=== PATIENT | female | born 1940 | race Caucasian/White ===

== ENCOUNTER → 2017-04-24 | Outpatient (CLI) | payer MEDICARE ==
--- NOTE | 2017-04-25 08:40 | ECHOF ---
Referral Reason:R06.02 Shortness of Breath MEASUREMENTS -------- HEIGHT: 157.5 cm WEIGHT: 80.7 kg BP: RVIDd: 3.0 cm (< 3.3) IVSd: 1.3 cm (0.6 - 1.1) LVIDd: 4.4 cm (3.9 - 5.3) LVPWd: 1.0 cm (0.6 - 1.1) IVSs: 1.7 cm LVIDs: 3.0 cm LVPWs: 1.3 cm LAESV Index (A-L): 38.41 ml/m Ao Diam: 3.3 cm (2.0 - 3.7) AV Cusp: 1.1 cm (1.5 - 2.6) LA Diam: 4.3 cm (2.7 - 3.8) MV EXCURSION: 22.256 mm (> 18.000) MV EF SLOPE: 156 mm/s (70 - 150) EPSS: 0.3 cm MV E Carter: 0.55 m/s MV DecT: 252 ms MV A Carter: 0.69 m/s MV E/A Ratio: 0.80 AV maxP.33 mmHg AV meanP.39 mmHg RAP: 5.00 mmHg RVSP: 39.18 mmHg FINDINGS -------- Sinus rhythm. This was a technically good study. The left ventricular size is normal. There is mild concentric left ventricular hypertrophy. Overa ll left ventricular systolic function is normal with, an EF between 55 - 60 %. The right ventricle is normal in size. LA is moderately dilated 34-39 ml/m2 The right atrial size is normal. There is moderate aortic valve sclerosis. There is mild aortic stenosis present. Peak/mean gradie nt across the Aortic Valve is 20.33mmHg / 9.39mmHg. Mild mitral annular calcification present. Mild mitral regurgitation is present. Mild tricuspid regurgitation present. There is mild pulmonary hypertension. The right ventricular systolic pressure, as measured by Doppler, is 39.18mmHg. There is no pulmonic regurgitation present. The aortic root size is normal. There is no pericardial effusion. CONCLUSIONS -------- 1. The left ventricular size is normal. 2. There is mild concentric left ventricular hypertrophy. 3. Overall left ventricular systolic function is normal with, an EF between 55 - 60 %. 4. LA is moderately dilated 34-39 ml/m2 5. There is moderate aortic valve sclerosis. 6. There is mild aortic stenosis present. 7. Peak/mean gradient across the Aortic Valve is 20.33mmHg / 9.39mmHg. 8. Mild mitral annular calcification present. 9. Mild mitral regurgitation is present. 10. Mild tricuspid regurgitation present. 11. There is mild pulmonary hypertension. 12. The right ventricular systolic pressure, as measured by Doppler, is 39.18mmHg. 13. There is no pulmonic regurgitation present. 14. The aortic root size is normal. 15. There is no pericardial effusion. SPECIAL EDUCATION CURRICULUM SPECIALIST: Morenita Bailey RDCS
== END ==
LOC: RADECHMAIN 14:50
PROVIDERS: ATTEND Physician Assistant
DX: I08.1 Rheumatic disorders of both mitral and tricuspid valves (principal); I70.8 Atherosclerosis of other arteries; I27.20 Pulmonary hypertension, unspecified
CPT/HCPCS: 93306

== ENCOUNTER 2020-03-18 14:48 | Observation (INO) | payer MEDICARE ==
[2020-03-18] MEDS ORDERED: IPRATROPIUM-ALBUTEROL 3 ML NEB INHALATION STA (15:14)
--- NOTE | 2020-03-18 15:53 | ED ---
SOB HPI - General Chief Complaint: Shortness of Breath Stated Complaint: High BP Time Seen by Provider: 03/18/20 15:03 Source: patient, EMS Mode of arrival: EMS Limitations: no limitations - History of Present Illness Initial Comments: This patient is an 79-year-old woman who arrives here as a transfer from [facility], where she had gone to be seen regarding shortness of breath. The patient relates that she moved to a new residence approximately one month ago, and she noticed that she was becoming short of breath shortly after that. She felt initially that it was due to temperature changes in the house that were causing her COPD to flareup a little. The patient also relates that her son brought her a cat and she is uncertain if she has an ALLERGIC reaction to it. Patient had gone to the other facility today, where she had initial labs, chest x-ray, and she was transferred here for the purpose of having cardiology consultation. When I interview the patient, she complains of a little bit of dyspnea, but no other symptoms. She denies chest pain, diaphoresis, palpitations, nausea or vomiting. The patient reportedly had Covid 19 infection in December. MD Complaint: shortness of breath Onset/Timin -: month(s) Severity: moderate Consistency: constant Improves With: nothing Worsens With: exertion Known History Of: COPD Associated Symptoms: cough - Related Data Home Medications Medication Instructions Recorded Confirmed Diclofenac Sodium Gel [Voltaren 2 gm TOPICAL QID PRN 01/18/14 03/18/20 Gel] Levothyroxine Sodium [Synthroid] 150 mcg PO AC-BRKFST 01/18/14 03/18/20 Lovastatin [Mevacor] 20 mg PO HS 01/18/14 03/18/20 fentaNYL 50MCG/HR PATCH [Duragesic 50 mcg TRANSDERM Q72H 01/18/14 03/18/20 50MCG/HR] Albuterol Inhaler [Ventolin Hfa 2 puff INHALATION RT-QID PRN 03/18/20 03/18/20 Inhaler] Allopurinol [Zyloprim] 200 mg PO HS 03/18/20 03/18/20 Ascorbic Acid [Vitamin C] 500 mg PO HS 03/18/20 03/18/20 Aspirin EC [Ecotrin Low Dose] 81 mg PO HS 03/18/20 03/18/20 Calcitriol [Rocaltrol] 0.25 mcg PO MOTUWETHFR@2100 03/18/20 03/18/20 Cholecalciferol (Vitamin D3) 125 mcg PO DAILY 03/18/20 03/18/20 [Vitamin D3 (5000 Iu)] Fluticasone/Vilanterol [Breo 1 puff INHALATION RT-DAILY 03/18/20 03/18/20 Ellipta 100-25 Mcg Inhaler] Folic Acid 0.4 mg PO DAILY 03/18/20 03/18/20 HYDROcodone/APAP 5-325MG [[place] 1 tab PO QID 03/18/20 03/18/20 5-325] Omeprazole 20 mg PO BID 03/18/20 03/18/20 Vitamin B Complex 1 cap PO DAILY 03/18/20 03/18/20 Zinc 50 mg PO DAILY 03/18/20 03/18/20 lisinopriL [Zestril] 2.5 mg PO DAILY 03/18/20 03/18/20 Previous Rx's Medication Instructions Recorded Apixaban [Eliquis] 2.5 mg PO BID #60 tab 03/20/20 Furosemide [Lasix] 40 mg PO BID@0900,1600 #60 tab 03/20/20 carvediloL [Coreg] 6.25 mg PO BID-W/MEALS #60 tab 03/20/20 Allergies Allergy/AdvReac Type Severity Reaction Status Date / Time Penicillins Allergy Unknown Unknown Verified 03/18/20 16:49 Childhood Review of Systems ROS Statement: Those systems with pertinent positive or pertinent negative responses have been documented in the HPI. ROS Other: All systems not noted in ROS Statement are negative. Constitutional: Denies: fever, chills Respiratory: Reports: dyspnea. Denies: cough, wheezes, hemoptysis Cardiovascular: Reports: dyspnea on exertion. Denies: chest pain, palpitations, orthopnea, edema, syncope Gastrointestinal: Denies: abdominal pain, nausea, vomiting, diarrhea, melena, hematochezia Genitourinary: Denies: dysuria, hematuria Musculoskeletal: Denies: back pain Skin: Denies: rash Neurological: Denies: headache, weakness, numbness, paresthesias Past Medical History Past Medical History: Atrial Fibrillation, Heart Failure, Diabetes Mellitus, Hypertension History of Any Multi-Drug Resistant Organisms: None Reported Past Surgical History: Adenoidectomy, Bladder Surgery, Cholecystectomy, Hysterectomy, Orthopedic Surgery, Tonsillectomy Additional Past Surgical History / Comment(s): Left foot , right hip Past Psychological History: No Psychological Hx Reported Smoking Status: Former smoker Past Alcohol Use History: None Reported Past Drug Use History: None Reported General Exam Limitations: no limitations General appearance: alert, in no apparent distress Head exam: Present: atraumatic, normocephalic Eye exam: Present: normal appearance. Absent: scleral icterus, conjunctival injection Neck exam: Present: normal inspection Respiratory exam: Present: wheezes. Absent: respiratory distress, rales, rhonchi, stridor, accessory muscle use, decreased breath sounds, prolonged expiratory Cardiovascular Exam: Present: irregular rhythm, normal heart sounds. Absent: systolic murmur, diastolic murmur, rubs, gallop GI/Abdominal exam: Present: soft. Absent: distended, tenderness, guarding, rebound, rigid, mass Extremities exam: Present: normal inspection, normal capillary refill. Absent: pedal edema, calf tenderness Back exam: Present: normal inspection. Absent: CVA tenderness (R), CVA tenderness (L) Neurological exam: Present: alert Skin exam: Present: warm, dry, intact, normal color. Absent: rash Course Vital Signs 03/18/20 03/18/20 03/18/20 14:52 15:35 15:41 Temperature 97.8 F Pulse Rate 100 85 92 Respiratory 18 Rate Blood Pressure 144/108 O2 Sat by Pulse 95 Oximetry 03/18/20 03/18/20 03/18/20 16:45 16:46 17:40 Temperature Pulse Rate 103 H Respiratory 20 Rate Blood Pressure 157/124 144/108 O2 Sat by Pulse Oximetry 03/18/20 18:16 Temperature 97.8 F Pulse Rate 88 Respiratory 18 Rate Blood Pressure 133/95 O2 Sat by Pulse 98 Oximetry Medical Decision Making - Lab Data Result diagrams: 03/20/20 03:37 - EKG Data -: EKG Interpreted by Hi EKG shows normal: axis (Left axis deviation), intervals (QRS duration 150 ms, prolonged consistent with the right bundle branch block. QTC 508 ms, normal.), QRS complexes (right bundle branch block), ST-T waves (Possible lateral ischemia.) Rate: tachycardia (Rate 103 bpm) Interpretation: other (Atrial fibrillation) Disposition Clinical Impression: Chronic atrial fibrillation, COPD (chronic obstructive pulmonary disease), Dyspnea Disposition: ADMITTED IP TO THIS HOSP Condition: Stable
[2020-03-18] MEDS ORDERED: NITROGLYCERIN SL TABS 0.4 MG TAB SUBLINGUAL PRN (16:09)
[2020-03-18] MEDS ORDERED: MAG HYDROX/AL HYDROX/SIMETH 30 ML, HYOSCYAMINE ELIXIR 10 ML, LIDOCAINE VISCOUS 2% 10 ML PO STA ×3 (16:14)
[2020-03-18] MEDS ORDERED: predniSONE 20 MG TAB PO STA (16:14)
[2020-03-18] MEDS ORDERED: ENALAPRILAT 1.25 MG/ML 1 ML VIAL IVP STA (16:52)
[2020-03-18] MEDS ORDERED: ALBUTEROL NEBULIZED 2.5 MG/3 ML INHALATION PRN (19:58)
[2020-03-18] MEDS: IPRATROPIUM-ALBUTEROL 3 ML NEB INHALATION SCH (20:08)
[2020-03-18] MEDS: SODIUM CHLORIDE 0.9% 1,000 ML IV SCH (20:42)
[2020-03-18] MEDS: allopurinoL 100 MG TAB PO SCH (20:45)
[2020-03-18] MEDS: HEPARIN SODIUM,PORCINE 5,000 UNIT/ML 1 ML VIAL SQ SCH (20:45)
[2020-03-18] MEDS: ASCORBIC ACID 500 MG TAB PO SCH (20:46)
[2020-03-18] MEDS: carvediloL 3.125 MG TAB PO SCH (20:46)
[2020-03-18 20:55] LABS: Glucose,Whole Blood 195 mg/dL (75-99)
[2020-03-18] MEDS ORDERED: ASPIRIN 81 MG PO SCH (21:00)
[2020-03-19 05:32] LABS: Cholesterol 167 mg/dL (<200); HDL Cholesterol 60 mg/dL (40-60); LDL Cholesterol,Calculated 91 mg/dL (0-99); Triglycerides 79 mg/dL (<150)
[2020-03-19] MEDS: carvediloL 3.125 MG TAB PO SCH (06:58)
[2020-03-19] MEDS: LEVOTHYROXINE 75 MCG TAB PO SCH (06:58)
[2020-03-19 07:01] LABS: Glucose,Whole Blood 171 mg/dL (75-99)
[2020-03-19] MEDS ORDERED: carvediloL 3.125 MG TAB PO STA (07:49)
[2020-03-19] MEDS: predniSONE 20 MG TAB PO SCH (08:29)
[2020-03-19] MEDS: FOLIC ACID 1 MG TAB PO SCH (08:29)
[2020-03-19] MEDS: HEPARIN SODIUM,PORCINE 5,000 UNIT/ML 1 ML VIAL SQ SCH (08:29)
[2020-03-19] MEDS: ZINC SULFATE 220 MG CAP PO SCH (08:29)
[2020-03-19] MEDS: IPRATROPIUM-ALBUTEROL 3 ML NEB INHALATION SCH ×5 (08:34→19:50)
[2020-03-19] MEDS ORDERED: AZITHROMYCIN 500 MG in SODIUM CHLORIDE 0.9% 250 ML IVPB STA (08:52)
[2020-03-19] MEDS ORDERED: FUROSEMIDE 40 MG TAB PO SCH (09:00)
[2020-03-19] MEDS ORDERED: FUROSEMIDE 10 MG/ML 4 ML VIAL IV SCH ×2 (09:00→21:00)
[2020-03-19] MEDS ORDERED: ASPIRIN 325 MG TAB PO SCH (09:00)
[2020-03-19] MEDS ORDERED: APIXABAN 2.5 MG TABLET PO SCH (09:15)
[2020-03-19 09:36] LABS: Calcium 9.6 mg/dL (8.4-10.2)
--- NOTE | 2020-03-19 09:55 | P.CRDCN ---
History of Present Illness History of present illness: HISTORY OF PRESENTING ILLNESS This is a pleasant 79-year-old female past medical history significant for chronic persistent atrial fibrillation, history of DVT, history of bleeding hemorrhoid therefore not on intermediate anticoagulation, chronic kidney disease, diabetes mellitus, hypertension, dyslipidemia, COPD and former nicotine dependence. She follows in the office with Dr. Bullock however has not been to the office since 2018. We have been asked to see in consultation for atrial fibrillation and shortness of breath. She initially presented to [facility] secondary to progressively worsening shortness of breath over the previous one month. She states she has been using her nebulizer regularly however is not getting significant relief. Her shortness of breath is worse with exertion or activity. She states even simple activities such as walking to the bathroom causes her to become quite labored. She denies associated chest pain. She has no dizziness or palpitations. She was evaluated for the watchman procedure last year however the process was halted secondary to her testing positive for Covid in December. DIAGNOSTICS EKG reveals no fibrillation. Telemetry tracings indicate atrial fibrillation with variable ventricular rate. Chest xray obtained at [facility] reveals left pleural effusion and increased interstitial prominence. Laboratory reviewed, cardiac enzymes negative 3, d-dimer 1.63, sodium 136, potassium 5, creatinine 1.58, magnesium 2.1, TSH 0.86, BNP 684, hemoglobin 11.9, WBC 12.8 and platelets 253. Current cardiac medications include aspirin 81 mg daily, carvedilol 3.125 mg twice a day, lisinopril 2.5 mg daily and Lasix 40 mg daily. She underwent an echocardiogram with her primary care physician in December 2019 revealing impaired LV systolic function with ejection fraction 35-40%, moderate mitral regurgitation and mild aortic stenosis. Prior to that she had a normal echocardiogram in the office with Dr. Bullock in 2017 revealing preserved LV systolic function with ejection fraction 55-60% with mild aortic stenosis with a mean gradient of 9 mmHg. REVIEW OF SYSTEMS At the time of my exam: CONSTITUTIONAL: Denies fever or chills. CARDIOVASCULAR: Complains of exertional dyspnea. Denies chest pain, orthopnea, PND or palpitations. RESPIRATORY: Denies cough. GASTROINTESTINAL: Denies abdominal pain, diarrhea, constipation, nausea or vomiting. MUSCULOSKELETAL: Denies myalgias. NEUROLOGIC: Denies numbness, tingling, headacbe or weakness. ENDOCRINE: Denies fatigue, weight change, polydipsia or polyurina. GENITOURINARY: Denies burning, hematuria or urgency with micturation. HEMATOLOGIC: Denies history of anemia or bleeding. PHYSICAL EXAMINATION Blood pressure 141/98 heart rate 87 afebrile and maintaining oxygen saturation on nasal cannula. CONSTITUTIONAL: No apparent distress. HEENT: Head is normocephalic. Pupils are equal, round. Sclerae anicteric. Mucous membranes of the mouth are moist. No JVD. No carotid bruit. CHEST EXAMINATION: Bibasilar rales, no wheezes or rhonchi. No chest wall t enderness is noted on palpation or with deep breathing. HEART EXAMINATION: Irregular rate and rhythm. S1, S2 heard. Systolic ejection murmur at the base, no gallops or rub. ABDOMEN: Soft, nontender. Positive bowel sounds. EXTREMITIES: 2+ peripheral pulses, right lower extremity edema and erythema and no calf tenderness. NEUROLOGIC EXAMINATION: Patient is awake, alert and oriented x3. ASSESSMENT Acute on chronic systolic heart failure Elevated d-dimer with history of DVT Chronic persistent atrial fibrillation with variable ventricular rates Chronic kidney disease Diabetes mellitus Hypertension Dyslipidemia COPD Aortic stenosis Mitral regurgitation PLAN Repeat 2-D echocardiogram and Doppler study to assess cardiac structure and function. Obtain bilateral lower extremity venous Doppler and VQ scan. Initiate IV diuretics, Lasix 40 mg twice a day. Increase Coreg to 6.25 mg twice a day. Discussed with the patient the need for thromboembolic protection. She is agreeable to start Eliquis 2.5 mg twice a day. Discontinue aspirin. Follow renal function and electrolytes in the morning. Document accurate intake and output along with daily weights. Further recommendations to follow based upon clinical course. Thank you kindly for this consultation. Nurse Practitioner note has been reviewed, I agree with a documented findings and plan of care. Patient was seen and examined. Past Medical History Past Medical History: Atrial Fibrillation, Heart Failure, Diabetes Mellitus, Hypertension History of Any Multi-Drug Resistant Organisms: None Reported Past Surgical History: Adenoidectomy, Bladder Surgery, Cholecystectomy, Hysterectomy, Orthopedic Surgery, Tonsillectomy Additional Past Surgical History / Comment(s): Left foot , right hip Past Psychological History: No Psychological Hx Reported Smoking Status: Never smoker Past Alcohol Use History: None Reported Past Drug Use History: None Reported Medications and Allergies Home Medications Medication Instructions Recorded Confirmed Type Diclofenac Sodium Gel [Voltaren 2 gm TOPICAL QID PRN 01/18/14 03/18/20 History Gel] Furosemide [Lasix] 40 mg PO DAILY 01/18/14 03/18/20 History Levothyroxine Sodium [Synthroid] 150 mcg PO AC-BRKFST 01/18/14 03/18/20 History Lovastatin [Mevacor] 20 mg PO HS 01/18/14 03/18/20 History fentaNYL 50MCG/HR PATCH [Duragesic] 50 mcg TRANSDERM Q72H 01/18/14 03/18/20 History Albuterol Inhaler [Ventolin Hfa 2 puff INHALATION RT-QID PRN 03/18/20 03/18/20 History Inhaler] Allopurinol [Zyloprim] 200 mg PO HS 03/18/20 03/18/20 History Ascorbic Acid [Vitamin C] 500 mg PO HS 03/18/20 03/18/20 History Aspirin EC [Ecotrin Low Dose] 81 mg PO HS 03/18/20 03/18/20 History Calcitriol [Rocaltrol] 0.25 mcg PO MOTUWETHFR@2100 03/18/20 03/18/20 History Cholecalciferol (Vitamin D3) 125 mcg PO DAILY 03/18/20 03/18/20 History [Vitamin D3 (5000 units)] Fluticasone/Vilanterol [Breo 1 puff INHALATION RT-DAILY 03/18/20 03/18/20 History Ellipta 100-25 Mcg Inhaler] Folic Acid 0.4 mg PO DAILY 03/18/20 03/18/20 History HYDROcodone/APAP 5-325MG [[place] 1 tab PO QID 03/18/20 03/18/20 History 5-325] Omeprazole 20 mg PO BID 03/18/20 03/18/20 History Vitamin B Complex 1 cap PO DAILY 03/18/20 03/18/20 History Zinc 50 mg PO DAILY 03/18/20 03/18/20 History carvediloL [Coreg] 3.125 mg PO BID 03/18/20 03/18/20 History lisinopriL [Zestril] 2.5 mg PO DAILY 03/18/20 03/18/20 History Allergies Allergy/AdvReac Type Severity Reaction Status Date / Time Penicillins Allergy Unknown Unknown Verified 03/18/20 16:49 Childhood Physical Exam Vitals: Vital Signs Temp Pulse Pulse Resp BP BP Pulse Ox 03/19/20 08:44 74 03/19/20 02:10 97.4 F L 68 19 162/80 95 03/18/20 22:45 154/87 03/18/20 20:20 97.9 F 90 20 159/103 97 03/18/20 20:17 68 03/18/20 20:08 68 98 03/18/20 18:26 98 F 91 17 141/99 92 L 03/18/20 18:16 97.8 F 88 18 133/95 98 03/18/20 17:40 144/108 03/18/20 16:46 20 03/18/20 16:45 103 H 157/124 03/18/20 15:41 92 03/18/20 15:35 85 03/18/20 14:52 97.8 F 100 18 144/108 95 Intake and Output 03/18/20 03/19/20 03/19/20 22:59 06:59 14:59 Other: Voiding Method Toilet Toilet # Voids 2 1 1 # Bowel Movements 1 Weight 79.832 kg Results 03/19/20 07:58 Cardiac Enzymes 03/18/20 03/18/20 Range/Units 18:32 21:10 Troponin I 0.029 0.030 (0.000-0.034) ng/mL Lipids 03/18/20 Range/Units 21:10 Triglycerides 79 (<150) mg/dL Cholesterol 167 (<200) mg/dL HDL Cholesterol 60 (40-60) mg/dL Current Medications Generic Name Dose Route Start Last Admin Trade Name Freq PRN Reason Stop Dose Admin Albuterol Sulfate 2.5 mg 03/18/20 19:58 Albuterol Nebulized 2.5 Mg/3 Ml INHALATION RT-QID PRN Shortness Of Breath Albuterol/Ipratropium 3 ml 03/18/20 20:00 03/19/20 08:43 Ipratropium-Albuterol 3 Ml Neb INHALATION 3 ml RT-QID DAVID Administration Allopurinol 200 mg 03/18/20 21:00 03/18/20 20:45 Allopurinol 100 Mg Tab PO 200 mg HS DAVID Administration Ascorbic Acid 500 mg 03/18/20 21:00 03/18/20 20:46 Ascorbic Acid 500 Mg Tab PO 500 mg HS DAVID Administration Aspirin 81 mg 03/18/20 21:00 03/18/20 20:45 Aspirin 81 Mg PO 81 mg HS DAVID Administration Calcitriol 0.25 mcg 03/19/20 21:00 Calcitriol 0.25 Mcg Cap PO MOTUWETHFR@2100 DAVID Carvedilol 6.25 mg 03/19/20 17:30 Carvedilol 6.25 Mg Tab PO BID-W/MEALS DAVID Folic Acid 1 mg 03/19/20 09:00 03/19/20 08:29 Folic Acid 1 Mg Tab PO 1 mg DAILY DAVID Administration Furosemide 40 mg 03/19/20 09:00 Furosemide 10 Mg/Ml 4 Ml Vial IV Q12HR DAVID Heparin Sodium (Porcine) 5,000 unit 03/18/20 21:00 03/19/20 08:29 Heparin Sodium,Porcine 5,000 Unit/Ml 1 Ml Vial SQ 5,000 unit Q12HR DAVID Administration Sodium Chloride 1,000 mls @ 20 mls/hr 03/18/20 16:15 03/18/20 20:42 Saline 0.9% IV Not Given .Q24H DAVID Azithromycin 500 mg/ Sodium 250 mls @ 250 mls/hr 03/19/20 08:52 Chloride IVPB 03/19/20 09:51 ONCE STA Levothyroxine Sodium 150 mcg 03/19/20 07:30 03/19/20 06:58 Levothyroxine 75 Mcg Tab PO 150 mcg AC-BRKFST DAVID Administration Lisinopril 2.5 mg 03/19/20 09:00 03/19/20 08:29 Lisinopril 2.5 Mg Tab PO 2.5 mg DAILY DAVID Administration Nitroglycerin 0.4 mg 03/18/20 16:09 Nitroglycerin Sl Tabs 0.4 Mg Tab SUBLINGUAL Q5M PRN Chest Pain Prednisone 40 mg 03/19/20 09:00 03/19/20 08:29 Prednisone 20 Mg Tab PO 40 mg DAILY DAVID Administration Zinc Sulfate 220 mg 03/19/20 09:00 03/19/20 08:29 Zinc Sulfate 220 Mg Cap PO 220 mg DAILY DAVID Administration Intake and Output 03/18/20 03/19/20 03/19/20 22:59 06:59 14:59 Other: Voiding Method Toilet Toilet # Voids 2 1 1 # Bowel Movements 1 Weight 79.832 kg
--- NOTE | 2020-03-19 10:19 | US ---
EXAMINATION TYPE: US venous doppler duplex LE DATE OF EXAM: 03/19/2020 8:50 AM COMPARISON: NONE CLINICAL HISTORY: swelling, erythema and elev dd. edema SIDE PERFORMED: Bilateral TECHNIQUE: The lower extremity deep venous system is examined utilizing real time linear array sonog ortiz with graded compression, doppler sonography and color-flow sonography. VESSELS IMAGED: Common Femoral Vein Deep Femoral Vein Greater Saphenous Vein * Femoral Vein Popliteal Vein Small Saphenous Vein * Proximal Calf Veins (* superficial vessels) There is normal flow, compressibility, vascular waveforms. Right Leg: Negative for DVT Left Leg: Negative for DVT IMPRESSION: No evident deep venous thrombosis at or above the knees
--- NOTE | 2020-03-19 11:50 | ECHOF ---
Referral Reason:shortness of breath MEASUREMENTS -------- HEIGHT: 157.5 cm WEIGHT: 79.8 kg BP: 162/80 RVIDd: 3.5 cm (< 3.3) IVSd: 1.2 cm (0.6 - 1.1) LVIDd: 4.7 cm (3.9 - 5.3) LVPWd: 1.3 cm (0.6 - 1.1) IVSs: 1.7 cm LVIDs: 3.8 cm LVPWs: 1.7 cm LA Diam: 4.2 cm (2.7 - 3.8) LAESV Index (A-L): 39.47 ml/m Ao Diam: 3.0 cm (2.0 - 3.7) AV Cusp: 1.3 cm (1.5 - 2.6) MV EXCURSION: 15.618 mm (> 18.000) MV EF SLOPE: 91 mm/s (70 - 150) EPSS: 1.0 cm AV maxP.17 mmHg AV meanP.31 mmHg AR PHT: 902 ms RAP: 15.00 mmHg RVSP: 48.75 mmHg FINDINGS -------- Atrial fibrillation. This was a technically adequate study. The left ventricular size is normal. There is mild concentric left ventricular hypertrophy. There is severe global hypokinesis of LV . Overall left ventricular systolic function is moderate-severe ly impaired with, an EF between 30 - 35 %. The right ventricle is mildly enlarged. LA is severely dilated >40 ml/m2 The right atrial size is normal. Interatrial and interventricular septum intact. There is mild aortic valve sclerosis. There is mild aortic regurgitation. Mild mitral annular calcification present. [id number] mitral regurgitation is present. Moderate tricuspid regurgitation present. There is mild to moderate pulmonary hypertension. The r ight ventricular systolic pressure, as measured by Doppler, is 48.75mmHg. Trace/mild (physiologic) pulmonic regurgitation. The aortic root size is normal. The inferior vena cava is dilated with no significant inspiratory collapse which is consistent estima elizabeth right atrial pressure of >15 mmHg. There is no pericardial effusion. CONCLUSIONS -------- 1. There is mild concentric left ventricular hypertrophy. 2. There is severe global hypokinesis of LV . 3. Overall left ventricular systolic function is moderate-severely impaired with, an EF between 30 - 35 %. 4. The right ventricle is mildly enlarged. 5. LA is severely dilated >40 ml/m2 6. There is mild aortic valve sclerosis. 7. There is mild aortic regurgitation. 8. Mild mitral annular calcification present. 9. [id number] mitral regurgitation is present. 10. Moderate tricuspid regurgitation present. 11. There is mild to moderate pulmonary hypertension. 12. Trace/mild (physiologic) pulmonic regurgitation. 13. The inferior vena cava is dilated with no significant inspiratory collapse which is consistent es timated right atrial pressure of >15 mmHg. 14. There is no pericardial effusion. QUILL SKINNER: Shelli King RDCS
[2020-03-19] MEDS: BUDESONIDE 0.5 MG/2 ML NEBU INHALATION SCH ×2 (12:02→19:50)
[2020-03-19] MEDS: LIDOCAINE 5% PATCH TOPICAL SCH (15:13)
--- NOTE | 2020-03-19 15:35 | NM ---
EXAMINATION TYPE: NM pul vent and perfuse DATE OF EXAM: 03/19/2020 COMPARISON: Chest x-ray 03/18/2020 HISTORY: Shortness of breath, elevated d-dimer TECHNIQUE: Utilizing inhalation of 70.8 mCi Tc 99m DTPA aerosol and intravenous injection of 5.38 mC i of Tc 99m MAA, ventilation and perfusion images are acquired post injection in multiple projections . 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 There is no evidence of mismatched defects. IMPRESSION: Intermediate probability for pulmonary embolism
[2020-03-19] MEDS: carvediloL 6.25 MG TAB PO SCH (17:30)
--- NOTE | 2020-03-19 20:38 | P.HPIM ---
History of Present Illness H&P Date: 03/19/20 Chief Complaint: shortness of breath Natalie Mccain is an 79 yo F with PMH of atrial fibrillation, history of DVT, history of bleeding hemorrhoid therefore not on oil heaterman anticoagulation, T2DM, COPD, HTN, HLD who presented initially to outside hospital with worsening short ness of breath over the past few weeks. Pt complains of dysnpea with both at rest and with exertion, she states that even walking to the bathroom causes her to become very winded. She denies cough, chest pain, fever or chills. She has tried her nebulizer without relief. Pt does note she was recently diagnosed with COVID in December of last year but states this dyspnea is new since then. On presentation she was hypertensive, initial labs were apparently unremarkable and she was then transferred to [facility] for Cardiology evaluation. Currently she denies dyspnea at rest but continues to complain of shortness of breath with exertion. Review of Systems All systems: negative Constitutional: Reports weakness, Denies chills, Denies fever Eyes: denies blurred vision, denies pain Ears, nose, mouth and throat: Denies headache, Denies sore throat Cardiovascular: Reports dyspnea on exertion, Reports shortness of breath, Denies chest pain Respiratory: Reports dyspnea, Denies cough Gastrointestinal: Denies abdominal pain, Denies diarrhea, Denies nausea, Denies vomiting Genitourinary: Denies dysuria, Denies hematuria Musculoskeletal: Denies myalgias Integumentary: Denies pruritus, Denies rash Neurological: Denies numbness, Denies weakness Psychiatric: Denies anxiety, Denies depression Endocrine: Denies fatigue, Denies weight change Past Medical History Past Medical History: Atrial Fibrillation, Heart Failure, Diabetes Mellitus, Hypertension History of Any Multi-Drug Resistant Organisms: None Reported Past Surgical History: Adenoidectomy, Bladder Surgery, Cholecystectomy, Hysterectomy, Orthopedic Surgery, Tonsillectomy Additional Past Surgical History / Comment(s): Left foot , right hip Past Psychological History: No Psychological Hx Reported Smoking Status: Never smoker Past Alcohol Use History: None Reported Past Drug Use History: None Reported Medications and Allergies Home Medications Medication Instructions Recorded Confirmed Type Diclofenac Sodium Gel [Voltaren 2 gm TOPICAL QID PRN 01/18/14 03/18/20 History Gel] Furosemide [Lasix] 40 mg PO DAILY 01/18/14 03/18/20 History Levothyroxine Sodium [Synthroid] 150 mcg PO AC-BRKFST 01/18/14 03/18/20 History Lovastatin [Mevacor] 20 mg PO HS 01/18/14 03/18/20 History fentaNYL 50MCG/HR PATCH [Duragesic] 50 mcg TRANSDERM Q72H 01/18/14 03/18/20 History Albuterol Inhaler [Ventolin Hfa 2 puff INHALATION RT-QID PRN 03/18/20 03/18/20 History Inhaler] Allopurinol [Zyloprim] 200 mg PO HS 03/18/20 03/18/20 History Ascorbic Acid [Vitamin C] 500 mg PO HS 03/18/20 03/18/20 History Aspirin EC [Ecotrin Low Dose] 81 mg PO HS 03/18/20 03/18/20 History Calcitriol [Rocaltrol] 0.25 mcg PO MOTUWETHFR@2100 03/18/20 03/18/20 History Cholecalciferol (Vitamin D3) 125 mcg PO DAILY 03/18/20 03/18/20 History [Vitamin D3 (5000 units)] Fluticasone/Vilanterol [Breo 1 puff INHALATION RT-DAILY 03/18/20 03/18/20 History Ellipta 100-25 Mcg Inhaler] Folic Acid 0.4 mg PO DAILY 03/18/20 03/18/20 History HYDROcodone/APAP 5-325MG [[place] 1 tab PO QID 03/18/20 03/18/20 History 5-325] Omeprazole 20 mg PO BID 03/18/20 03/18/20 History Vitamin B Complex 1 cap PO DAILY 03/18/20 03/18/20 History Zinc 50 mg PO DAILY 03/18/20 03/18/20 History carvediloL [Coreg] 3.125 mg PO BID 03/18/20 03/18/20 History lisinopriL [Zestril] 2.5 mg PO DAILY 03/18/20 03/18/20 History Allergies Allergy/AdvReac Type Severity Reaction Status Date / Time Penicillins Allergy Unknown Unknown Verified 03/18/20 16:49 Childhood Physical Exam Vitals: Vital Signs Temp Pulse Pulse Resp BP Pulse Ox 03/19/20 20:09 82 03/19/20 19:52 82 03/19/20 16:11 87 03/19/20 15:56 87 03/19/20 15:00 97.8 F 95 17 142/101 98 03/19/20 12:24 84 03/19/20 12:13 84 03/19/20 09:00 97.8 F 87 17 141/98 98 03/19/20 08:56 76 03/19/20 08:44 74 03/19/20 02:10 97.4 F L 68 19 162/80 95 03/18/20 22:45 154/87 Intake and Output 03/19/20 03/19/20 03/19/20 06:59 14:59 22:59 Other: Voiding Method Toilet Toilet Toilet # Voids 1 3 # Bowel Movements 1 Weight 81.647 kg General: well nourished, well developed, NAD. Vitals reviewed Eyes: PERRL, EOMI, conjunctiva normal HENT: normocephalic, mucus membranes moist Neck: supple, no JVD Lungs: normal respiratory effort, no wheezes or rales CV: Irregular, no murmur. Peripheral pulses 2+ Abdomen: soft, nondistended, no organomegaly Lymph: no cervical or axillary LAD Skin: warm and dry. Neuro: A&Ox3, normal mood and affect Results CBC & Chem 7: 03/19/20 07:58 Labs: Abnormal Lab Results - Last 24 Hours (Table) 03/18/20 03/19/20 03/19/20 Range/Units 20:54 07:00 07:58 D-Dimer 1.63 H (<0.60) mg/L FEU Sodium (137-145) mmol/L Carbon Dioxide (22-30) mmol/L BUN (7-17) mg/dL Creatinine (0.52-1.04) mg/dL Glucose (74-99) mg/dL POC Glucose (mg/dL) 195 H 171 H (75-99) mg/dL 03/19/20 Range/Units 07:58 D-Dimer (<0.60) mg/L FEU Sodium 136 L (137-145) mmol/L Carbon Dioxide 21 L (22-30) mmol/L BUN 26 H (7-17) mg/dL Creatinine 1.58 H (0.52-1.04) mg/dL Glucose 169 H (74-99) mg/dL POC Glucose (mg/dL) (75-99) mg/dL Thrombosis Risk Factor Assmnt - Choose All That Apply Any of the Below Risk Factors Present?: Yes Each Factor Represents 1 point: Abnormal pulmonary function (COPD), Heart failure (<1month), Obesity (BMI >25) Other Risk Factors: Yes Each Risk Factor Represents 3 Points: Age 75 years or older Thrombosis Risk Factor Assessment Total Risk Factor Score: 6 Thrombosis Risk Factor Assessment Level: High Risk Assessment and Plan (1) Dyspnea on exertion Current Visit: Yes Status: Acute Code(s): R06.00 - DYSPNEA, UNSPECIFIED SNOMED Code(s): 52981619 (2) COPD (chronic obstructive pulmonary disease) Current Visit: Yes Status: Acute Code(s): J44.9 - CHRONIC OBSTRUCTIVE PULMONARY DISEASE, UNSPECIFIED SNOMED Code(s): 29476189 (3) Chronic atrial fibrillation Current Visit: Yes Status: Acute Code(s): I48.20 - CHRONIC ATRIAL FIBRILLATION, UNSPECIFIED SNOMED Code(s): 906397656 (4) Cardiomyopathy Current Visit: Yes Status: Acute Code(s): I42.9 - CARDIOMYOPATHY, UNSPECIFIED SNOMED Code(s): 71229153 (5) Chronic systolic CHF (congestive heart failure), NYHA class 2 Current Visit: Yes Status: Acute Code(s): I50.22 - CHRONIC SYSTOLIC (CONGESTIVE) HEART FAILURE SNOMED Code(s): 890656880 Plan: 1. Dyspnea on exertion secondary to CHF exacerbation. Cardiology consulted, Echo with LVEF 35% and pt started on IV lasix. Titrate O2 and continue daily weights 2. Cardiomyopathy. Pt started on eliquis, continue lisinopril 3. COPD. Pt given prednisone in ED, decrease dose today
[2020-03-19] MEDS: SODIUM CHLORIDE 0.9% 1,000 ML IV SCH (22:02)
[2020-03-19] MEDS: allopurinoL 100 MG TAB PO SCH (22:06)
[2020-03-19] MEDS: ASCORBIC ACID 500 MG TAB PO SCH (22:06)
[2020-03-19] MEDS: APIXABAN 5 MG TAB PO SCH (22:06)
[2020-03-20 04:13] LABS: Calcium 9.3 mg/dL (8.4-10.2)
[2020-03-20] MEDS: LEVOTHYROXINE 75 MCG TAB PO SCH (07:11)
[2020-03-20] MEDS: carvediloL 6.25 MG TAB PO SCH (07:12)
[2020-03-20] MEDS: IPRATROPIUM-ALBUTEROL 3 ML NEB INHALATION SCH ×2 (07:35→14:06)
[2020-03-20] MEDS: BUDESONIDE 0.5 MG/2 ML NEBU INHALATION SCH (07:35)
--- NOTE | 2020-03-20 08:57 | P.PN ---
Subjective HISTORY OF PRESENTING ILLNESS This is a pleasant 79-year-old female past medical history significant for chronic persistent atrial fibrillation, history of DVT, history of bleeding hemorrhoid therefore not on long term care social worker anticoagulation, chronic kidney disease, diabetes mellitus, hypertension, dyslipidemia, COPD and former nicotine depend ence. She follows in the office with Dr. Bullock however has not been to the office since 2019. Patient seen and examined sitting up in bed undergoing an updraft treatment. She states overall she feels as though her breathing is improved however she has not been very active. Echocardiogram obtained reveals impaired LV systolic function with ejection fraction 30-35%, severely dilated left atrium, other to severe mitral regurgitation, moderate tricuspid regurgitation and mild to moderate pulmonary hypertension with an RVSP of 48 mmHg. VQ scan reveals an intermediate probability for pulmonary embolism. Blood pressure 127/71 heart rate 84 afebrile maintaining oxygen saturation on nasal cannula. Laboratory data reviewed, sodium 134, potassium 5.0, creatinine 1.97 up from 1.58 yesterday. An accurate documented intake and outputs. Telemetry tracings reveal persistent atrial fibrillation with controlled ventricular rates. PHYSICAL EXAMINATION CONSTITUTIONAL: No apparent distress. HEENT: Head is normocephalic. Pupils are equal, round. Sclerae anicteric. Mucous membranes of the mouth are moist. No JVD. No carotid bruit. CHEST EXAMINATION: Bibasilar rales, no wheezes or rhonchi. No chest wall tenderness is noted on palpation or with deep breathing. HEART EXAMINATION: Irregular rate and rhythm. S1, S2 heard. Systolic ejection murmur at the base, no gallops or rub. EXTREMITIES: 2+ peripheral pulses, right lower extremity edema and erythema and no calf tenderness. ASSESSMENT Acute on chronic systolic heart failure Elevated d-dimer with history of DVT Chronic persistent atrial fibrillation with variable ventricular rates Chronic kidney disease Diabetes mellitus Hypertension Dyslipidemia COPD Aortic stenosis Mitral regurgitation PLAN Transition to oral diuretics, 40 mg twice a day. Recommend Eliquis 2.5 mg twice a day given her age, chronic kidney disease and history of GI bleeding in the past. Follow up with Dr. Bullock in 2 weeks. Repeat renal function tomorrow if she is here or in 3 days if she is discharged. Nurse Practitioner note has been reviewed, I agree with a documented findings and plan of care. Patient was seen and examined. Objective - Vital Signs Vital signs: Vital Signs Temp 97.3 F L 03/20/20 02:35 Pulse 84 03/20/20 07:50 Resp 18 03/20/20 02:35 BP 127/71 03/20/20 02:35 Pulse Ox 98 03/20/20 02:35 Intake & Output 03/19/20 03/20/20 03/20/20 18:59 06:59 18:59 Weight 81.647 kg 81 kg Other: Voiding Method Toilet Toilet # Voids 3 2 - Labs CBC & Chem 7: 03/20/20 03:37 Labs: Abnormal Lab Results - Last 24 Hours (Table) 03/19/20 03/19/20 03/20/20 Range/Units 07:58 07:58 03:37 D-Dimer 1.63 H (<0.60) mg/L FEU Sodium 136 L 134 L (137-145) mmol/L Carbon Dioxide 21 L (22-30) mmol/L BUN 26 H 39 H (7-17) mg/dL Creatinine 1.58 H 1.97 H (0.52-1.04) mg/dL Glucose 169 H 177 H (74-99) mg/dL
[2020-03-20] MEDS ORDERED: FUROSEMIDE 40 MG TAB PO SCH (09:00)
[2020-03-20 09:29] VITALS: BP 140/83; PULSE 80; RESP 16; TEMP 97.5
[2020-03-20] MEDS: ZINC SULFATE 220 MG CAP PO SCH (09:55)
[2020-03-20] MEDS: FOLIC ACID 1 MG TAB PO SCH (09:55)
[2020-03-20] MEDS: APIXABAN 5 MG TAB PO SCH (09:55)
[2020-03-20] MEDS: predniSONE 20 MG TAB PO SCH (09:55)
[2020-03-20] MEDS: LIDOCAINE 5% PATCH TOPICAL SCH (09:56)
--- NOTE | 2020-03-20 16:33 | P.DS ---
Providers Date of admission: 03/18/20 16:09 Expected date of discharge: 03/20/20 Attending physician: Ernie Evans MD Consults: 03/18/20 16:15 Consult Physician Routine Consulting Provider: Marisela Bullock Consult Reason/Comments: atrial fibrillation, RVR Do you want consulting provider notified?: Yes Primary care physician: Elena Childs Hospital Course: Final Diagnoses: Acute on chronic systolic CHF, cardiomyopathy VQ scan indeterminate for PE, in a patient with history of DVT. COPD Chronic persistent atrial fibrillation Diabetes mellitus Chronic kidney disease, stage IV Severe mitral regurgitation Moderate tricuspid regurg Mild to moderate pulmonary hypertension History of hemorrhoid bleeding. Hospital course:Natalie Mccain is an 79 yo F with PMH of atrial fibrillation, history of DVT, history of bleeding hemorrhoid therefore not on fdc anticoagulation, T2DM, COPD, HTN, HLD who presented initially to outside hospital with worsening shortness of breath over the past few weeks. Pt complains of dysnpea with both at rest and with exertion, she states that even walking to the bathroom causes her to become very winded. She denies cough, chest pain, fever or chills. She has tried her nebulizer without relief. Pt does note she was recently diagnosed with COVID in December of last year but states this dyspnea is new since then. On presentation she was hypertensive, initial labs were apparently unremarkable and she was then transferred to [facility] for Cardiology evaluation. Currently she denies dyspnea at rest but continues to complain of shortness of breath with exertion. Evaluated by cardiology, diuresed on IV push Lasix, anticoagulated on Eliquis, Coreg dose increased. Significant clinical improvement. Denies chest pain, palpitations or shortness of breath. Denies exertional shortness of breath. Patient will be discharged home in stable condition with guarded prognosis today pending final DC recommendations and clearance from cardiology. The impression and plan of care has been dictated as directed. : I performed a history and examination of this patient, discussed the same with the dictator. I agree with the dictator's note ,documented as a scribe. Any additional findings or plans will be noted. Patient Condition at Discharge: Stable Plan - Discharge Summary Discharge Rx Participant: Yes New Discharge Prescriptions: New Apixaban [Eliquis] 2.5 mg PO BID #60 tab carvediloL [Coreg] 6.25 mg PO BID-W/MEALS #60 tab Furosemide [Lasix] 40 mg PO BID@0900,1600 #60 tab Continue Lovastatin [Mevacor] 20 mg PO HS Levothyroxine Sodium [Synthroid] 150 mcg PO AC-BRKFST fentaNYL 50MCG/HR PATCH [Duragesic 50MCG/HR] 50 mcg TRANSDERM Q72H Diclofenac Sodium Gel [Voltaren Gel] 2 gm TOPICAL QID PRN PRN Reason: Pain Omeprazole 20 mg PO BID HYDROcodone/APAP 5-325MG [[place] 5-325] 1 tab PO QID Ascorbic Acid [Vitamin C] 500 mg PO HS Calcitriol [Rocaltrol] 0.25 mcg PO MOTUWETHFR@2100 Allopurinol [Zyloprim] 200 mg PO HS Folic Acid 0.4 mg PO DAILY Fluticasone/Vilanterol [Breo Ellipta 100-25 Mcg Inhaler] 1 puff INHALATION RT-DAILY Cholecalciferol (Vitamin D3) [Vitamin D3 (5000 Iu)] 125 mcg PO DAILY lisinopriL [Zestril] 2.5 mg PO DAILY Zinc 50 mg PO DAILY Vitamin B Complex 1 cap PO DAILY Aspirin EC [Ecotrin Low Dose] 81 mg PO HS Albuterol Inhaler [Ventolin Hfa Inhaler] 2 puff INHALATION RT-QID PRN PRN Reason: Shortness Of Breath Discontinued Furosemide [Lasix] 40 mg PO DAILY carvediloL [Coreg] 3.125 mg PO BID Discharge Medication List Diclofenac Sodium Gel [Voltaren Gel] 2 gm TOPICAL QID PRN 01/18/14 [History] Levothyroxine Sodium [Synthroid] 150 mcg PO AC-BRKFST 01/18/14 [History] Lovastatin [Mevacor] 20 mg PO HS 01/18/14 [History] fentaNYL 50MCG/HR PATCH [Duragesic 50MCG/HR] 50 mcg TRANSDERM Q72H 01/18/14 [History] Albuterol Inhaler [Ventolin Hfa Inhaler] 2 puff INHALATION RT-QID PRN 03/18/20 [History] Allopurinol [Zyloprim] 200 mg PO HS 03/18/20 [History] Ascorbic Acid [Vitamin C] 500 mg PO HS 03/18/20 [History] Aspirin EC [Ecotrin Low Dose] 81 mg PO HS 03/18/20 [History] Calcitriol [Rocaltrol] 0.25 mcg PO MOTUWETHFR@2100 03/18/20 [History] Cholecalciferol (Vitamin D3) [Vitamin D3 (5000 Iu)] 125 mcg PO DAILY 03/18/20 [History] Fluticasone/Vilanterol [Breo Ellipta 100-25 Mcg Inhaler] 1 puff INHALATION RT- DAILY 03/18/20 [History] Folic Acid 0.4 mg PO DAILY 03/18/20 [History] HYDROcodone/APAP 5-325MG [[place] 5-325] 1 tab PO QID 03/18/20 [History] Omeprazole 20 mg PO BID 03/18/20 [History] Vitamin B Complex 1 cap PO DAILY 03/18/20 [History] Zinc 50 mg PO DAILY 03/18/20 [History] lisinopriL [Zestril] 2.5 mg PO DAILY 03/18/20 [History] Apixaban [Eliquis] 2.5 mg PO BID #60 tab 03/20/20 [Rx] Furosemide [Lasix] 40 mg PO BID@0900,1600 #60 tab 03/20/20 [Rx] carvediloL [Coreg] 6.25 mg PO BID-W/MEALS #60 tab 03/20/20 [Rx] Follow up Appointment(s)/Referral(s): Compa Osorio MD [STAFF PHYSICIAN] - 1 Week Ernie Evans MD [STAFF PHYSICIAN] - 1 Week Ambulatory/Diagnostic Orders: Basic Metabolic Panel [LAB.AMB] Time Frame: 3 Days, Location: None Selected Activity/Diet/Wound Care/Special Instructions: Eliquis copay is $9.20/month. Confirm cardiology follow-up appointment prior to discharge.
[2020-03-20] MEDS ORDERED: APIXABAN 2.5 MG TABLET PO SCH (21:00)
== END 2020-03-20 16:15 ==
LOC: EC 14:48 → 1SOBS 16:09
PROVIDERS: ADMIT Family Medicine; ATTEND Family Medicine
DX: I13.0 Hypertensive heart and chronic kidney disease with heart failure and stage 1 through stage 4 chronic kidney disease, or unspecified chronic kidney disease (principal); I50.23 Acute on chronic systolic (congestive) heart failure; I42.9 Cardiomyopathy, unspecified; R94.2 Abnormal results of pulmonary function studies; J44.9 Chronic obstructive pulmonary disease, unspecified; I48.19 Other persistent atrial fibrillation; E11.22 Type 2 diabetes mellitus with diabetic chronic kidney disease; N18.4 Chronic kidney disease, stage 4 (severe); I08.3 Combined rheumatic disorders of mitral, aortic and tricuspid valves; I27.20 Pulmonary hypertension, unspecified; K64.9 Unspecified hemorrhoids; I45.10 Unspecified right bundle-branch block; R94.31 Abnormal electrocardiogram [ECG] [EKG]; R00.0 Tachycardia, unspecified; I11.0 Hypertensive heart disease with heart failure; E66.9 Obesity, unspecified; R79.1 Abnormal coagulation profile; Z86.16 Personal history of COVID-19; Z79.1 Long term (current) use of non-steroidal anti-inflammatories (NSAID); Z79.890 Hormone replacement therapy; Z79.899 Other long term (current) drug therapy; Z79.82 Long term (current) use of aspirin; Z79.51 Long term (current) use of inhaled steroids; Z79.891 Long term (current) use of opiate analgesic; Z88.0 Allergy status to penicillin; Z90.89 Acquired absence of other organs; Z98.890 Other specified postprocedural states; Z90.49 Acquired absence of other specified parts of digestive tract; Z90.710 Acquired absence of both cervix and uterus; Z87.891 Personal history of nicotine dependence; Z86.718 Personal history of other venous thrombosis and embolism; Z68.32 Body mass index [BMI] 32.0-32.9, adult
CPT/HCPCS: 93005 ×2; 96365; 96372 ×2; 96375 ×2; 99285; 94640 ×4; 93306; 85379; 80061; 80048 ×2; 84484; 93970; 78582; G0378 ×3; A9540; A9567; J1644 ×2; J1940; J0456; J7512 ×3